=== PATIENT | male | born 1990 | race Caucasian/White ===

== ENCOUNTER 2019-05-22 10:48 | Emergency (ER) | payer OTHER, SELFPAY ==
[2019-05-22 11:06] VITALS: BP 116/78; PULSE 101; RESP 16; TEMP 37.3; O2SAT 98
--- NOTE | 2019-05-22 11:40 | ED.URI ---
HPI - URI/Sore Throat General Chief Complaint: Upper Respiratory Infection Stated Complaint: Ear/Nose/Throat Time Seen by Provider: 05/22/19 11:40 Source: patient and family History of Present Illness HPI Narrative: Patient presents with sore throat fever body aches nasal congestion and bilateral ear fullness. Patient states his symptoms started 1 day ago and is afraid that he may have influenza. No shortness of breath no chest pain normally healthy individual. Patient states he is not taking thing [id number] for symptoms. Related Data Home Medications Medication Instructions Recorded Confirmed amitriptyline 05/22/19 Allergies Allergy/AdvReac Type Severity Reaction Status Date / Time No Known Allergies Allergy Unverified 05/22/19 11:45 Review of Systems Review of Systems: Narrative: CONSTITUTIONAL: Denies chills, or sweats. Reports fever and generalized body aches EYES: Denies visual changes, redness, or discharge. ENT: Denies otalgia. Reports nasal congestion runny nose and sore throat CARDIOVASCULAR: Denies chest pain, palpitations, or edema. RESPIRATORY: Denies dyspnea. Reports occasional cough GASTROINTESTINAL: Denies abdominal pain, nausea, vomiting, or diarrhea. GENITOURINARY: Denies dysuria or hematuria. SKIN: Denies rash or itching. MUSCULOSKELETAL: Denies back pain, joint pain, or myalgia. Reports generalized body aches NEUROLOGIC: Denies headache, numbness, or weakness. PSYCHIATRIC: Denies anxiety or depression. PMFSH Comments At time of signature, agree with nursing past medical, surgical, social and family history. There is no relevant family history pertinent to the presenting complaint Exam Narrative: Exam Narrative: GENERAL APPEARANCE: The patient is a well-developed, well-nourished , in no acute distress. SKIN: Skin is warm and dry without erythema, swelling or exudate. There is good turgor. No tenting. HEAD: Atraumatic. Normocephalic. No temporal or scalp tenderness. EYES: Moist and bright. Sclera and conjunctivae normal. No discharge. PERRLA. Extraocular motions intact. Gross visual acuity intact. EARS: Pinna is normal shape and contour. Clear external auditory canals. TM pearly stinson with good cone of light, no erythema or suppuration. Bilateral cerumen noted no gross hearing deficit. NOSE: pink, moist mucosa with good air movement. Clear rhinorrhea without nasal flaring. Septum midline. Mouth: moist mucous membranes. THROAT; mild erythema noted to posterior oropharynx with moderate postnasal drainage. Without exudate or ulceration.. Uvula midline. Normal movement of soft palate. Able to open mouth fully no drooling no trismus NECK: Supple and nontender with full range of motion without discomfort. No meningeal signs. LUNGS: Equal and bilateral breath sounds without wheezes, rales or rhonchi. CHEST: The chest wall is without retractions or use of accessory muscles. HEART: Has a regular rate and rhythm without murmur, gallops, click or rub. ABDOMEN: Soft, nontender with positive active bowel sounds. No rebound tenderness. EXTREMITIES: Without cyanosis, clubbing or edema. Equal 2+ distal pulses and 2 second capillary refill noted. NEUROLOGIC: alert, active, developmentally normal for age. The patient moves all extremities with normal muscle strength. Normal muscle tone is noted. Normal coordination is noted. NO focal neurological findings noted. Course Vital Signs Vital signs: Vital Signs Temperature 37.3 C 05/22/19 11:06 Pulse Rate 101 H 05/22/19 11:06 Respiratory Rate 16 05/22/19 11:06 Blood Pressure 116/78 05/22/19 11:06 Pulse Oximetry 98 05/22/19 11:06 Temperature 37.3 C 05/22/19 11:06 Pulse Rate 101 H 05/22/19 11:06 Respiratory Rate 16 05/22/19 11:06 Blood Pressure 116/78 05/22/19 11:06 Pulse Oximetry 98 05/22/19 11:06 MDM - URI/Sore Throat Differential Diagnosis Differential diagnosis: Likely upper respiratory infection, croup, otitis media,
== END 2019-05-22 12:18 | disposition home or self-care (01) ==
PROVIDERS: Emergency Provider Nurse Practitioner Family
DX: J06.9 Acute upper respiratory infection, unspecified (principal); J02.9 Acute pharyngitis, unspecified
CPT/HCPCS: 87081; 87804; 87880; 99213; G0463